=== PATIENT | female | born 1995 | race Caucasian/White ===

== ENCOUNTER 2016-09-15 20:22 | Outpatient (CLI) | payer OTHER ==
[~2016-09-15] VITALS: Ht 182.9 cm; Wt 100.0 kg
[2016-09-15 21:15] VITALS: BP 115/69
--- NOTE | 2016-09-16 06:33 | HPE ---
DATE OF ADMISSION: 09/15/2016 HISTORY: A 20-year-old 1, para 0, last menstrual period (LMP) 01/09/2016, estimated date of confinement (EDC) 10/15/2016, at 35 and 4/7 weeks of gestation complains of decreased movement and frequency. Labs show A positive, HIV negative hepatitis negative, rapid plasma reagin (RPR) negative, rubella immune varicella immune. Pap normal. Urine negative. Gonorrhea and chlamydia are negative. One-hour glucose was 90 . OBJECTIVE: On examination today she is in no acute distress. Symphysis fundus height is 35, has a category one strip with a baseline of 130, moderate variability of 6-25 beats per minute. No decelerations, 15 x 15 x 15 seconds accelerations. Cervix is closed, posterior. Presenting part is not in the pelvis. No vaginal loss or vaginal bleeding. Blood pressure is 115/69, respirations are 18, pulse is 85, temperature 98.3. Urine is 1.005, pH seven, +1 glucose. Everything is negative. The patient was complaining of frequency of urination; however, there are no documented issues on urinalysis. The rest of the examination is unremarkable. She is normocephalic, atraumatic. Neck full range of motions. Pupils equal and reactive to light. Chest: Distal pulses are symmetric. No evidence of deep venous thrombosis (DVT), pulmonary embolism (PE) or superficial phlebitis. Lungs are clear bilaterally to bases. No wheezes or rhonchi. No costovertebral angle tenderness. Symphysis fundus height is appropriate. Four-quadrant bowel sounds are noted. Nontender uterus. No rashes, lesions or pruritus. No arthralgia or myalgia. No complaints of cough, wheeze, shortness of breath or dyspnea on exertion. No chest pain. No bleeding. Neuro complete. No incontinence. There is some frequency but no urgency. No nausea, vomiting, diarrhea or constipation. No diabetic issues. She does not smoke or drink or abuse drugs. No domestic violence and she is to a soldier. Our plan of management is a nonstress test (NST) which is reactive. Discharged undelivered and appointment in one week's time.
== END 2016-09-15 23:37 | disposition home or self-care (01) ==
LOC: M LDO 20:22
PROVIDERS: ATTEND Obstetrics & Gynecology
DX: O36.8139 Decreased fetal movements, third trimester, other fetus (principal); Z3A.35 35 weeks gestation of pregnancy; Z88.2 Allergy status to sulfonamides